=== PATIENT | male | born 2000 | race Caucasian/White ===

== ENCOUNTER 2019-01-11 18:38 | Emergency (ER) | payer OTHER ==
--- NOTE | 2019-01-11 19:58 | XRAY Report ---
Reason: SOB Procedure Date: 01/11/2019 Accession Number: [id number] / [id number] Procedure: XR - Chest 2 View X-Ray CPT Code: 44795 FULL RESULT: EXAM: CHEST RADIOGRAPHY EXAM DATE: 01/11/2019 07:50 PM. CLINICAL HISTORY: Shortness of breath. COMPARISON: None. TECHNIQUE: 2 views. FINDINGS: Lungs/Pleura: No focal opacities evident. No pleural effusion. No pneumothorax. Normal volumes. Mediastinum: Heart and mediastinal contours are unremarkable. Other: None. IMPRESSION: Normal 2-view chest radiography. [facility]
--- NOTE | 2019-01-11 20:01 | ED Physician Documentation ---
History of Present Illness - Stated complaint Stated Complaint: SOA - Chief complaint Chief Complaint: Resp - History obtained from History obtained from: Patient - Additonal information Additional information: Patient is a previously healthy 18-year-old male presenting with fleeting episode of chest tightness and mild shortness of breath that has now resolved. Patient reports he has experienced these symptoms before, often when laying flat or when sleeping. Patient reports feeling as if he was experiencing a gas bubble, but denies specific GERD-like symptoms. Patient also denies productive cough, fever, other chest pain, abdominal pain, or other complaints. No other improving or worsening factors noted to his symptoms. Review of Systems Constitutional: denies: Fever Cardiac: reports: Chest pain / pressure. denies: Palpitations Respiratory: reports: Dyspnea. denies: Cough PD PAST MEDICAL HISTORY - Past Medical History Past Medical History: No - Past Surgical History Past Surgical History: No - Allergies Allergies/Adverse Reactions: Allergies Allergy/AdvReac Type Severity Reaction Status Date / Time No Known Drug Allergies Allergy Verified 01/11/19 18:42 PD ED PE NORMAL - General General: Alert and oriented X 3, No acute distress, Well developed/nourished - HEENT HEENT: Atraumatic, Moist mucous membranes - Cardiac Cardiac: RRR, No murmur, Other (No reproducible pain with palpation of chest) - Respiratory Respiratory: No respiratory distress, Clear bilaterally - Abdomen Abdomen: Normal bowel sounds, Soft, Non tender, Non distended - Derm Derm: Normal color, Warm and dry, No rash - Extremities Extremities: No deformity, No edema, No calf tenderness / cord - Neuro Neuro: Alert and oriented X 3, No motor deficit, No sensory deficit - Psych Psych: Normal mood, Normal affect Results - Vitals Vitals: Vital Signs - 24 hr 01/11/19 01/11/19 01/11/19 18:42 19:08 20:37 Temperature 36.6 C 36.4 C L Heart Rate 60 74 Respiratory 16 16 14 Rate Blood Pressure 115/72 113/64 O2 Saturation 97 100 Oxygen O2 Source Room air PD MEDICAL DECISION MAKING - ED course Complexity details: considered differential, d/w patient ED course: Have low suspicion for ACS, myocardial infarction, unstable angina, arrhythmia. Obtain EKG which returned unremarkable. EKG read by other ED physician-ses scanned image.Do not see evidence of ischemia. Patient also denies symptoms on raise high suspicion for PE and patient can be ruled out by PERC criteria.Also have lower suspicion for pneumonia and chest x-ray unremarkable. Patient describes symptoms that are most consistent with anxiety, esophageal spasm, and GERD. Do not feel patient requires extensive work-up at this time. Discussed supportive cares, return precautions, and appropriate follow-up. Patient voiced understanding and is comfortable with discharge plan. Departure - Departure Disposition: 01 Home, Self Care Clinical Impression: Chest pain, unspecified Condition: Good Instructions: ED Chest Pain NonCardiac Follow-Up: your,doctor [Other] - Within 3 Days Comments: Feel that your symptoms are likely related to esophageal spasm, acid reflux, or anxiety. May try calming exercises at home, as well as antacid medications. Please follow-up with your primary care physician next 2 to 3 days and as needed if symptoms recur. Return to ED sooner if expands worsening symptoms or other concerns. Discharge Date/Time: 01/11/19 20:38
[2019-01-11 20:38] VITALS: BP 113/64
== END 2019-01-11 20:38 | disposition home or self-care (01) ==
LOC: ED 18:38
DX: R07.9 Chest pain, unspecified (principal)
CPT/HCPCS: 71046; 93005; 99283